=== PATIENT | female | born 1995 | race American Indian/Alaskan Native ===

== ENCOUNTER 2020-04-23 19:25 | Emergency (ER) | payer SELFPAY ==
[2020-04-23] MEDS ORDERED: Activated Charcoal/Water Susp 50 GM/240 ML Tube PO ONE (19:51)
[2020-04-23 20:20] LABS: ANION GAP 21.1 mEq/L (7-13); CHLORIDE,CL 102 mmol/L (98-107); SODIUM,NA 142 mmol/L (136-145)
[2020-04-23 20:22] LABS: ACETAMINOPHEN 0 ug/mL (10-30 (Therapeutic))
[2020-04-23] MEDS ORDERED: Sodium Chloride 0.9% 1,000 ML IV ONE (20:24)
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
[2020-04-23] MEDS ORDERED: Ondansetron 4 MG/2 ML SDV IVPUSH ONE (22:26)
[2020-04-23] MEDS ORDERED: Sodium Chloride 0.9% 1,000 ML IV SCH (22:30)
== END 2020-04-24 03:00 | disposition home or self-care (01) ==
LOC: DL.ED 19:25
DX: T50.902A Poisoning by unspecified drugs, medicaments and biological substances, intentional self-harm, initial encounter (principal); F17.210 Nicotine dependence, cigarettes, uncomplicated; Z20.828 Contact with and (suspected) exposure to other viral communicable diseases
CPT/HCPCS: 36415; 80053; 80307; 83735; 85025; 87635; 93005; 96374; 99285; J2405; J7030; U0002

== ENCOUNTER 2022-01-04 18:09 | Emergency (ER) | payer BC ==
[2022-01-04] MEDS ORDERED: Lidocaine 2% Viscous Solution 15 ML UD PO ONE (18:34)
== END 2022-01-04 18:43 | disposition home or self-care (01) ==
LOC: DL.ED 18:09
DX: T85.848A Pain due to other internal prosthetic devices, implants and grafts, initial encounter (principal)
CPT/HCPCS: 99282; A9270

== ENCOUNTER 2022-01-07 00:08 | Emergency (ER) | payer BC ==
[2022-01-07] MEDS: Clindamycin HCl 150 MG Cap PO ONE (01:09)
[2022-01-07] MEDS: Ketorolac 30 MG/ML SDV IM ONE (01:09)
== END 2022-01-07 01:14 | disposition home or self-care (01) ==
LOC: DL.ED 00:08
DX: K04.7 Periapical abscess without sinus (principal); F17.210 Nicotine dependence, cigarettes, uncomplicated
CPT/HCPCS: 96372; 99282; A9270-GY; J1885

== ENCOUNTER 2022-11-15 13:46 | Emergency (ER) | payer BC | END 2022-11-15 17:43 | disposition home or self-care (01) | LOC: DL.ED 13:46 | DX: S93.492A Sprain of other ligament of left ankle, initial encounter (principal); Z72.0 Tobacco use; W01.0XXA Fall on same level from slipping, tripping and stumbling without subsequent striking against object, initial encounter | CPT/HCPCS: 73610-LT; 99282; 99283 ==

== ENCOUNTER 2023-07-18 03:11 | Emergency (ER) | payer BC ==
[2023-07-18] MEDS ORDERED: Cyclobenzaprine 10 MG Tab PO ONE (05:36)
== END 2023-07-18 06:03 | disposition home or self-care (01) ==
LOC: DL.ED 03:11
DX: S23.3XXA Sprain of ligaments of thoracic spine, initial encounter (principal); Z79.899 Other long term (current) drug therapy; X58.XXXA Exposure to other specified factors, initial encounter
CPT/HCPCS: 72125; 99283; A9270